=== PATIENT | male | born 1950 | race Caucasian/White ===

== ENCOUNTER 2023-03-04 15:13 | Emergency (ER) | payer MEDICARE ==
[~2023-03-04] VITALS: Ht 162.6 cm; Wt 61.0 kg
[2023-03-04 15:33] VITALS: BP 122/73
[2023-03-04 15:45] VITALS: BP 128/76
[2023-03-04] MEDS ORDERED: DOXAZOSIN2 MG PO (16:39)
[2023-03-04] MEDS ORDERED: ELIQUIS5 MG PO (16:40)
[2023-03-04] MEDS ORDERED: CRESTOR20 MG PO (16:42)
[2023-03-04] MEDS ORDERED: DEPAKOTE ER500 MG PO (16:43)
[2023-03-04] MEDS ORDERED: QUETIAPINE FUMA25 MG PO (16:44)
[2023-03-04] MEDS ORDERED: ZYLOPRIM100 MG PO (16:45)
[2023-03-04] MEDS ORDERED: LISINOPRIL10 MG PO (16:45)
[2023-03-04 18:27] VITALS: BP 128/76
== END 2023-03-04 18:27 | disposition home or self-care (01) ==
LOC: ED 15:13
DX: F99 Mental disorder, not otherwise specified (principal); I10 Essential (primary) hypertension; E78.00 Pure hypercholesterolemia, unspecified; M10.9 Gout, unspecified; Z59.02 Unsheltered homelessness